=== PATIENT | female | born 1935 | race Caucasian/White ===

== ENCOUNTER → 2018-06-28 | Outpatient (CLI) | payer MEDICARE ==
[~2018-06-28] MED LIST: ALDACTONE25 MG PO; ALLOPURINOL 10100 M3 PO; ASPIR 8181 MG PO; COLCHICINE0.6 MG PO; DEMADEX20 MG PO; IRON325 PO; METFORMIN HCL500 MG PO; POTASSIUM20 PO; TUMS PO; VIBRAMYCIN 100100 MG PO; VITAMIN D3400 UNIT PO; ZOCOR 10 MG TAB10 MG PO
== END ==
LOC: M.RAD 16:27
DX: R19.5 Other fecal abnormalities (principal)

== ENCOUNTER → 2019-12-18 | Outpatient (CLI) | payer MEDICARE | LOC: M.RAD 15:26 | PROVIDERS: ATTEND Internal Medicine | DX: R06.02 Shortness of breath (principal) ==